=== PATIENT | female | born 1955 | race Caucasian/White ===

== ENCOUNTER 2016-10-01 09:18 | Outpatient (CLI) | payer OTHER ==
[2016-10-01 12:20] LABS: #Eosinphils 0.4 thou/uL (0.0-0.7); #Lymphocytes 0.9 thou/uL (1.20-3.40); #Monocytes 0.3 thou/uL (0.11-0.59); #Neutrophils 2.7 thou/uL (1.40-6.50); %Basophils 0.9 % (0.0-1.0); %Eosinophils 8.5 % (0.0-10.0); %Lymphocytes 20.4 % (21.0-51.0); %Monocytes 6.6 % (0.0-10.0); Hematocrit 39.9 % (36.0-47.0); Mean Platelet Volume 6.4 fL (7.4-10.4); Red Blood Cell (RBC) Count 4.18 mill/uL (4.20-5.40); White Blood Cell (WBC) Count 4.3 thou/uL (4.8-10.8)
[2016-10-01 12:47] LABS: ALT (SGPT) 20 U/L (0-55); AST (SGOT) 21 U/L (5-34); Alkaline Phosphatase 87 U/L (40-150); Anion Gap 12 mmol/L (10-20); BUN (Urea Nitrogen) 12 mg/dL (9.8-20.1); Bilirubin, Direct 0.1 mg/dL (0.1-0.3); Bilirubin, Total 0.3 mg/dL (0.2-1.2); Calc. Creatinine Clearance 0 mL/min (70-130); Calcium 9.1 mg/dL (7.8-10.44); Carbon Dioxide 26 mmol/L (23-31); Estimated GFR-MDRD 83; LDL Cholesterol, Calculated 128 mg/dL; Protein, Total 6.4 g/dL (5.8-8.1)
[2016-10-01 12:52] LABS: Hemoglobin A1c 4.9 % (4.0-6.0)
[2016-10-01 14:55] LABS: Chloride 108 mmol/L (98-107)
== END 2016-10-01 09:19 | disposition home or self-care (01) ==
LOC: NAVSJIPCSP 09:18
PROVIDERS: ATTEND Family Medicine
DX: E03.9 Hypothyroidism, unspecified (principal)
CPT/HCPCS: 36415; 80048; 80061; 80076; 83036; 84443; 85025

== ENCOUNTER 2018-11-22 17:13 | Outpatient (CLI) | payer OTHER ==
--- NOTE | 2018-11-22 18:44 | RAD ---
PA AND LATERAL VIEWS OF THE CHEST: 11/22/18 HISTORY: Routine health screening. FINDINGS: Comparison made with exam of 07/21/14. The heart size is normal. The aorta is tortuous. The lungs are well expanded without focal areas of c onsolidation, pneumothoraces, or pleural effusions. No acute osseous abnormalities are seen. IMPRESSION: No radiographic evidence of acute cardiopulmonary process. POS: [facility]
== END 2018-11-22 17:14 | disposition home or self-care (01) ==
LOC: NAV RAD 17:13
PROVIDERS: ATTEND Family Medicine
DX: Z00.00 Encounter for general adult medical examination without abnormal findings (principal)
CPT/HCPCS: 71046

== ENCOUNTER 2020-09-19 11:00 | Emergency (ER) | payer MEDICARE ==
[2020-09-19] MEDS ORDERED: Ondansetron ODT 4 MG TAB ONE (12:06)
== END 2020-09-19 12:00 | disposition home or self-care (01) ==
LOC: NAV ERS 11:00
DX: R19.7 Diarrhea, unspecified (principal); R11.0 Nausea; E03.9 Hypothyroidism, unspecified; F17.210 Nicotine dependence, cigarettes, uncomplicated; Z79.899 Other long term (current) drug therapy
CPT/HCPCS: 99283; Q0162

== ENCOUNTER 2020-09-22 13:40 | Emergency (ER) | payer MEDICARE ==
[~2020-09-22 13:40] MED LIST: Iopamidol 370 76% 100 ML VIAL ONE
[2020-09-22 14:30] LABS: #Basophils 0.1 thou/uL (0.0-0.2); #Eosinphils 0.3 thou/uL (0.0-0.7); #Lymphocytes 0.7 thou/uL (1.20-3.40); #Monocytes 0.8 thou/uL (0.11-0.59); #Neutrophils 8.6 thou/uL (1.40-6.50); %Basophils 0.9 % (0.0-1.0); %Eosinophils 3.2 % (0.0-10.0); %Lymphocytes 6.8 % (21.0-51.0); %Monocytes 7.2 % (0.0-10.0); Hemoglobin 14.2 g/dL (12.0-16.0); Mean Corpuscular HGB CONC 31.9 g/dL (32.0-36.0); Mean Corpuscular Hemoglobin 29.7 pg (27.0-31.0); Mean Platelet Volume 6.7 fL (7.4-10.4); Platelet Count 341 thou/uL (130-400); White Blood Cell (WBC) Count 10.5 thou/uL (4.8-10.8)
[2020-09-22 14:34] LABS: ALT (SGPT) 22 U/L (8-55); AST (SGOT) 24 U/L (5-34); Albumin 4.3 g/dL (3.4-4.8); Alkaline Phosphatase 106 U/L (40-110); Anion Gap 16 mmol/L (10-20); BUN (Urea Nitrogen) 16 mg/dL (9.8-20.1); Bilirubin, Total 0.3 mg/dL (0.2-1.2); Calc. Creatinine Clearance 0 mL/min (70-130); Calcium 9.2 mg/dL (7.8-10.44); Carbon Dioxide 25 mmol/L (23-31); Chloride 101 mmol/L (98-107); Glucose 86 mg/dL (80-115); Potassium 3.8 mmol/L (3.5-5.1); Protein, Total 7.3 g/dL (5.8-8.1); Sodium 138 mmol/L (136-145)
[2020-09-22 15:39] LABS: Bilirubin Negative (Negative); Blood, Urine Negative (Negative); Clarity Clear (Clear); Glucose, Urine (Dipstick) Negative (Negative); Ketone, Urine Negative (Negative); Leukocyte Trace (Negative); Nitrite Negative (Negative); Protein, Urine (Dipstick) Negative (Neg-Trace); Urobilinogen 0.2 mg/dL (Less than 2)
[2020-09-22 15:41] LABS: Bacteria/HPF None Seen HPF (None Seen); RBC/HPF 0-3 HPF (0-3); Squamous Epithelial 0-3 HPF (0-3)
--- NOTE | 2020-09-22 17:23 | CT ---
CT ABDOMEN WITH CONTRAST CT PELVIS WITH CONTRAST: DATE: 09/22/2020 HISTORY: 65-year-old female with rectal pain and rectal bleeding COMPARISON: none TECHNIQUE: IV injection of iodinated contrast media: administered. Oral contrast media:Administered FINDINGS: The lumen of the left hemicolon is collapsed throughout the descending colon, sigmoid colon, and rect um. There is mild to moderate perirectal fat stranding representing edema. There is apparent mural edema throughout the rectum, sigmoid colon, and probably also descending colon. Numerous hepatic cysts. No portal vein thrombosis or intrahepatic biliary ductal dilation. Mildly distended gallbladder without mural thickening or pericholecystic edema. Multiple bilateral renal cysts, mostly small. No hydronephrosis or pyelonephritis. No abdominal aortic aneurysm. Unremarkable pancreas, adrenals, urinary bladder, and spleen. The cecum is located deep in the posterior aspect of the right pelvic cavity. Appendix is not identified with certainty. Lung bases are grossly clear. No small bowel dilation, ascites, or pneumoperitoneum. IMPRESSION: 1) findings suggestive of left colitis involving rectum, sigmoid colon, and probably descending colon . 2) numerous hepatic and renal cysts.
== END 2020-09-22 18:03 | disposition home or self-care (01) ==
LOC: NAV ERS 13:40
DX: K52.9 Noninfective gastroenteritis and colitis, unspecified (principal); Z71.6 Tobacco abuse counseling; F17.210 Nicotine dependence, cigarettes, uncomplicated; E03.9 Hypothyroidism, unspecified; Z79.899 Other long term (current) drug therapy
CPT/HCPCS: 74177; 80053; 81003; 81015; 83605; 85025; 99406; Q9967

== ENCOUNTER 2021-03-25 15:20 | Outpatient (CLI) | payer MEDICARE ==
[2021-03-25 16:10] LABS: Anion Gap 10 mmol/L (10-20); BUN (Urea Nitrogen) 17 mg/dL (9.8-20.1); Calc. Creatinine Clearance 0 mL/min (70-130); Calcium 9.5 mg/dL (7.8-10.44); Carbon Dioxide 26 mmol/L (23-31); Chloride 105 mmol/L (98-107); Glucose 64 mg/dL (80-115); Potassium 4.2 mmol/L (3.5-5.1); Sodium 137 mmol/L (136-145)
[2021-03-26 11:39] LABS: Ref Lab Test Ordered SULFONAMIDES; Reference Lab Name LABCORP
== END 2021-03-25 15:21 | disposition home or self-care (01) ==
LOC: NAV LABSP 15:20
PROVIDERS: ATTEND Family Medicine
DX: E16.2 Hypoglycemia, unspecified (principal); R61 Generalized hyperhidrosis; R53.1 Weakness
CPT/HCPCS: 36415; 80048; 82010; 83525; 84681

== ENCOUNTER 2022-01-06 14:45 | Emergency (ER) | payer MEDICARE ==
[2022-01-06] MEDS ORDERED: HYDROcodone/Acetaminophen 5/325 mg Tablet ONE (16:08)
== END 2022-01-06 16:15 | disposition home or self-care (01) ==
LOC: NAV ERS 14:45
DX: S52.531A Colles' fracture of right radius, initial encounter for closed fracture (principal); S52.611A Displaced fracture of right ulna styloid process, initial encounter for closed fracture; E03.9 Hypothyroidism, unspecified; F17.210 Nicotine dependence, cigarettes, uncomplicated; W18.30XA Fall on same level, unspecified, initial encounter; Y92.007 Garden or yard of unspecified non-institutional (private) residence as the place of occurrence of the external cause; Z79.899 Other long term (current) drug therapy
CPT/HCPCS: 29125

== ENCOUNTER 2024-05-23 16:48 | Outpatient (CLI) | payer MEDICARE | END 2024-05-23 16:49 | disposition home or self-care (01) | LOC: NAV RAD 16:48 | PROVIDERS: ATTEND Nurse Practitioner Family | DX: R06.02 Shortness of breath (principal) | CPT/HCPCS: 71046 ==